=== PATIENT | male | born 1995 ===

== ENCOUNTER 2020-07-01 08:44 | Emergency (ER) | payer OTHER ==
[~2020-07-01] VITALS: Ht 172.7 cm; Wt 65.3 kg
[2020-07-01] MEDS ORDERED: KETO10TA2 PO (13:01)
[2020-07-01] MEDS ORDERED: CYCLOBENZAPRINE10 MG PO (13:01)
== END 2020-07-01 14:06 | disposition home or self-care (01) ==
LOC: ER 08:44
DX: S33.5XXA Sprain of ligaments of lumbar spine, initial encounter (principal); S70.02XA Contusion of left hip, initial encounter; S40.012A Contusion of left shoulder, initial encounter; S20.211A Contusion of right front wall of thorax, initial encounter; S50.02XA Contusion of left elbow, initial encounter; W10.8XXA Fall (on) (from) other stairs and steps, initial encounter; Y93.89 Activity, other specified; Y92.69 Other specified industrial and construction area as the place of occurrence of the external cause; Y99.8 Other external cause status